=== PATIENT | male | born 2000 | race Caucasian/White ===

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

== ENCOUNTER 2019-08-02 23:49 | Emergency (ER) | payer OTHER ==
[~2019-08-02] VITALS: Ht 175.3 cm; Wt 110.6 kg
[2019-08-02 23:49] VITALS: BP 160/79
[~2019-08-02 23:49] MED LIST: AFRI0.056; LEVA1TAB2 PO; MUCI600T37 PO; VENTAER IN
[2019-08-03] MEDS ORDERED: NS 1,000 ML IV ONE (00:15)
[2019-08-03] MEDS ORDERED: METOCLOPRAMIDE INJ 10MG/2ML VIAL (J2765) IV ONE (00:15)
[2019-08-03 00:28] LABS: BASO # 0.1 10^3/uL (0.0-0.2); BASO % 0.7 % (0.0-1.0); EOS # 0.5 10^3/uL (0.0-0.5); EOS % 4.2 % (0.0-3.0); HEMATOCRIT 40.5 % (42.0-52.0); HEMOGLOBIN 13.8 g/dl (13.5-17.5); LYMPH # 2.8 10^3/uL (1.5-5.0); LYMPH % 24.1 % (24.0-44.0); MEAN CORPUSCULAR HEMOGLOBIN 29.2 pg (27.0-33.0); MEAN CORPUSCULAR HGB CONC 34.1 g/dl (32.0-36.5); MEAN CORPUSCULAR VOLUME 85.8 fl (80.0-96.0); MONO # 0.8 10^3/uL (0.0-0.8); MONO % 6.6 % (0.0-5.0); NEUTROPHILS # 7.3 10^3/uL (1.5-8.5); PLATELET COUNT, AUTOMATED 352 10^3/uL (150-450); RED BLOOD COUNT 4.72 10^6/uL (4.30-6.10); WHITE BLOOD COUNT 11.6 10^3/uL (4.0-10.0)
[2019-08-03 01:07] LABS: ALBUMIN 4.3 GM/DL (3.2-5.2); ALT/SGPT 41 U/L (12-78); BILIRUBIN,DIRECT < 0.1 MG/DL (0.0-0.2); BILIRUBIN,TOTAL 0.3 MG/DL (0.2-1.0); BLOOD UREA NITROGEN 9 MG/DL (7-18); CALCIUM LEVEL 9.2 MG/DL (8.5-10.1); CARBON DIOXIDE LEVEL 27 MEQ/L (21-32); CHLORIDE LEVEL 107 MEQ/L (98-107); CK-MB VALUE MASS 1.2 NG/ML (<3.6); CPK CREATINE PHOSPHOKINASE 227 U/L (39-308); CREATININE FOR GFR 0.91 MG/DL (0.70-1.30); GLUCOSE, FASTING 95 MG/DL (70-100); LIPASE 67 U/L (73-393); MB/CK RELATIVE INDEX 0.53 (< OR =4); POTASSIUM SERUM 3.8 MEQ/L (3.5-5.1); SODIUM LEVEL 141 MEQ/L (136-145); TOTAL PROTEIN 7.5 GM/DL (6.4-8.2); TROPONIN I < 0.02 NG/ML (< 0.10)
[2019-08-03] MEDS ORDERED: ONDA4TAB6 PO (01:50)
--- NOTE | 2019-08-03 07:12 | ECGEPIP ---
[facility] - ED Test Date: 2019-08-03 Pat Name: VIDHI PRICE Department: Room: - Gender: Male [employer] Driver: DAWSON : 2000 Requested By: STEPHAN Perez Order Number: [id number] Reading MD: Hang Hector Measurements Intervals Mobile Rate: 67 P: 42 [place]: 183 QRS: 49 QRSD: 107 T: 48 QT: 360 QTc: 381 Interpretive Statements SINUS RHYTHM WITH SINUS ARRHYTHMIA INCOMPLETE RIGHT BUNDLE BRANCH BLOCK NO PRIORS FOR COMPARISON Electronically Signed on 08-03-2019 7:12:02 EDT by Hang Hector
== END 2019-08-03 02:26 | disposition home or self-care (01) ==
LOC: M ED 23:49
DX: K52.9 Noninfective gastroenteritis and colitis, unspecified (principal); Z77.098 Contact with and (suspected) exposure to other hazardous, chiefly nonmedicinal, chemicals
CPT/HCPCS: 80048; 80076; 81001; 82550; 82553; 83690; 85025; 93005; 96361; 96374; 99284; J2765

== ENCOUNTER → 2024-09-08 | Outpatient (CLI) | payer OTHER ==
[~2024-09-08] MED LIST changes: +ONDA-282 PO
== END ==
LOC: M OUTALCOH 08:25
PROVIDERS: ATTEND Psychiatry & Neurology Psychiatry
DX: F12.10 Cannabis abuse, uncomplicated (principal); F17.200 Nicotine dependence, unspecified, uncomplicated

== ENCOUNTER 2024-09-15 13:58 | Outpatient (RCR) | payer OTHER | END 2024-09-30 | LOC: M OUTALCOH 13:58 | PROVIDERS: ATTEND Psychiatry & Neurology Psychiatry | DX: F12.10 Cannabis abuse, uncomplicated (principal); F17.200 Nicotine dependence, unspecified, uncomplicated ==

== ENCOUNTER 2024-10-05 07:54 | Outpatient (RCR) | payer OTHER | END 2024-10-31 | LOC: M OUTALCOH 07:54 | PROVIDERS: ATTEND Psychiatry & Neurology Psychiatry | DX: F12.10 Cannabis abuse, uncomplicated (principal); F17.200 Nicotine dependence, unspecified, uncomplicated ==

== ENCOUNTER 2024-11-30 07:59 | Outpatient (RCR) | payer OTHER | END 2024-12-01 | LOC: M OUTALCOH 07:59 | PROVIDERS: ATTEND Psychiatry & Neurology Psychiatry | DX: F12.10 Cannabis abuse, uncomplicated (principal); F17.200 Nicotine dependence, unspecified, uncomplicated ==

== ENCOUNTER 2024-12-07 07:52 | Outpatient (RCR) | payer OTHER | END 2024-12-29 | LOC: M OUTALCOH 07:52 | PROVIDERS: ATTEND Psychiatry & Neurology Psychiatry | DX: F12.10 Cannabis abuse, uncomplicated (principal); F17.200 Nicotine dependence, unspecified, uncomplicated ==